=== PATIENT | male | born 1945 | race Caucasian/White ===

== ENCOUNTER 2016-09-29 05:56 | Observation (INO) ==
[2016-09-27 10:48] LABS: MANUAL DIFF NEEDED? NO; URINE MICRO REVIEW NEEDED? NO; URINE SOURCE VOIDED
--- NOTE | 2016-09-27 10:48 | Diag Imaging Result Doc PS360 ---
EXAM: CHEST-2 VIEWS HISTORY: PAT TECHNIQUE: COMPARISON: None. FINDINGS: Heart is mildly prominent. The vessels are not distended. The lungs are well expanded. No pleural effusions. No pneumonia. There is a small granuloma in the mid right lung. IMPRESSION: Mildly prominent heart, but otherwise negative exam. Electronically signed by Dhruv Leiva 09/27/2016 10:45 AM
[2016-09-27 11:53] LABS: BASO% 0.4 % (0.0-0.8); EOS# 0.16 X1000 (0.0-0.7); EOS% 1.7 % (0.0-10.0); HEMATOCRIT 41.7 % (42.0-52.0); HEMOGLOBIN 14.5 g/dL (14.0-18.0); IMM GRAN# 0.06 X1000 (0.0-0.04); IMM GRAN% 0.6 % (0.0-0.5); LYMPH# 2.25 X1000 (1.2-3.4); LYMPH% 23.9 % (20.5-51.1); MCHC 34.8 g/dL (33-37); MCV 97.9 FL (81-99); MONO# 1.08 X1000 (0.11-0.59); MONO% 11.5 % (1.7-9.3); MPV 11.7 FL (7.4-10.4); NEUT% 61.9 % (42.2-75.2); PLT 227 X1000 (130-400); RBC 4.26 XMIL (4.7-6.1)
[2016-09-27 11:56] LABS: BILIRUBIN URINE NEGATIVE (NEGATIVE); BLOOD URINE NEGATIVE (NEGATIVE); COLOR YELLOW; GLUCOSE URINE NEGATIVE (NEGATIVE); LEUKOCYTES URINE NEGATIVE (NEGATIVE); NITRITE URINE NEGATIVE (NEGATIVE); PH URINE 6.5; PROTEIN URINE NEGATIVE (NEGATIVE); SP GRAVITY URINE 1.005; TURBIDITY URINE CLEAR (CLEAR); UROBILINOGEN URINE NORMAL (NORMAL)
[2016-09-27 11:59] LABS: UR EPITHELIAL CELLS <10 /HPF (<10); URINE BACTERIA NEGATIVE /HPF; URINE RBC <10 /HPF (<10); URINE WBC <10 /HPF (<10)
[2016-09-27 12:16] LABS: AGAP 13; ALBUMIN 4.1 g/dL (3.5-5.0); ALKALINE PHOSPHATASE 114 U/L (32-122); BUN 12 mg/dL (8-22); CALCIUM 9.5 mg/dL (8.8-10.2); CHLORIDE 97 mmol/L (98-107); COSMO 283; GOT 31 U/L (10-34); GPT 23 U/L (10-44); POTASSIUM 3.5 mmol/L (3.5-5.1); SODIUM 142 mmol/L (136-145); TCO2 32 mmol/L (25-35); TOTAL BILIRUBIN 1.06 mg/dL (0.20-1.00); TOTAL PROTEIN 7.5 g/dL (6.3-8.3)
--- NOTE | 2016-09-28 05:18 | EKG Report ---
Test Performed on : 09/27/2016 09:57:41 AM Test Reason : PAT Blood Pressure : / mmHG Vent. Rate : 057 BPM Atrial Rate : 057 BPM P-R Int : 136 ms QRS Dur : 082 ms QT Int : 430 ms P-R-T Axes : 062 084 068 degrees QTc Int : 418 ms Sinus bradycardia. Nonspecific ST abnormality Abnormal ECG No previous ECGs available Confirmed by Jani Ruiz DO ([id number]) on 09/30/2016 5:11:53 PM
[2016-09-29] MEDS ORDERED: PEPCID ONE (06:12)
[2016-09-29] MEDS ORDERED: REGLAN ONE (06:12)
[2016-09-29] MEDS ORDERED: KEFZOL 1 GM/D5W 1 GM/50 ML IVPB ONE (06:13)
[2016-09-29] MEDS ORDERED: LR 1,000 ML ONE ×2 (06:13→07:45)
[2016-09-29] MEDS ORDERED: COREG ONE (06:43)
[2016-09-29] MEDS ORDERED: ZIAC 10/6.25 MG PO ONE (06:44)
[2016-09-29] MEDS ORDERED: COREG PO ONE (06:44)
[2016-09-29] MEDS ORDERED: AMIDATE ONE (06:54)
[2016-09-29] MEDS ORDERED: ROBINUL ONE ×2 (06:54→08:25)
[2016-09-29] MEDS ORDERED: XYLOCAINE-MPF 2% ONE (06:54)
[2016-09-29] MEDS ORDERED: SODIUM CHLORIDE 0.9% ONE (07:45)
[2016-09-29] MEDS ORDERED: OFIRMEV 1000 MG/ISOTONIC SOLN 1,000 MG/100 ML BOTTLE ONE (07:49)
[2016-09-29] MEDS ORDERED: TORADOL ONE (07:50)
[2016-09-29] MEDS ORDERED: DECADRON ONE (07:50)
[2016-09-29] MEDS ORDERED: MARCAINE 0.25% PF ONE (07:59)
[2016-09-29] MEDS ORDERED: ZEMURON ONE (08:03)
[2016-09-29] MEDS ORDERED: NEOSTIGMINE ONE (08:25)
[2016-09-29] MEDS ORDERED: QUELICIN (DOSE) ONE (08:33)
--- NOTE | 2016-09-29 08:39 | Diag Imaging Result Doc PS360 ---
EXAM: OPERATIVE CHOLANGIOGRAM HISTORY: GALLBLADDER DZ WITH SLUDGE TECHNIQUE: COMPARISON: None. FINDINGS: There is contrast filling the common bile duct. It has emptied into the duodenum. There is a crescent-shaped filling defect in the distal common bile duct concerning for a prominent stone. IMPRESSION: I believe there is a stone in the distal common bile duct Electronically signed by Dhruv Leiva 09/29/2016 8:36 AM
--- NOTE | 2016-09-29 09:18 | OPERATIVE NOTE ---
PROCEDURE DATE: 09/29/2016 PREOPERATIVE DIAGNOSIS: Cholecystitis, cholelithiasis, possible stone in common bile duct. POSTOPERATIVE DIAGNOSIS: Cholecystitis, cholelithiasis, possible stone in common bile duct. PROCEDURE: Laparoscopic cholecystectomy with cholangiogram. DESCRIPTION OF PROCEDURE IN DETAIL: The patient was brought to the operating room after satisfactory induction of IV and endotracheal anesthesia, athrombic VIOLA's were placed. His abdomen was broadly prepped and draped in the appropriate manner for laparoscopy. Initially, the infraumbilical area was infiltrated with 0.25% Marcaine with epinephrine. Dissection was taken sharply down through skin and subcutaneous tissue. Fascia was tacked with 0 Surgilon and incised. Under direct visualization, a Junior trocar was placed. The abdomen was insufflated to 3.5 L of carbon dioxide. Again, after infiltration with Marcaine and epinephrine, one 10 and two 5 mm trocars were placed across the right epigastrium. The liver was inspected; it appeared to have some early evidence of cirrhosis. The gallbladder was grasped and retracted superiorly. The hilar structures were dissected. The cystic duct was slightly dilated. A cystic duct cholangiogram revealed a possible 1 cm plus common bile duct stone in the distal duct with no obstruction. The catheter was subsequently removed. The duct was doubly clipped and divided, as was the cystic artery. The gallbladder was dissected from the liver bed with the use of the monopolar scissors. It was subsequently placed in an EndoCatch bag and removed. On opening, there was a 5-6 mm stone in the gallbladder. The rest was just sludge. The decision was made to place a drain as the patient may require ERCP with pushback pressure on the duct, so a Kian- Olsen drain was threaded and brought out through a right lateral trocar incision. It was anchored with 0 Surgilon. It was placed in the subhepatic space. The abdomen was subsequently deflated. The trocars were removed. The subumbilical incision underwent fascial closures of 0 Surgilon. All skin incisions were closed with stainless steel clips. Sterile dressings were applied. The patient was awakened and extubated in the operating room and transferred to recovery. ESTIMATED BLOOD LOSS: About 10 mL. cc: Marko Dean MD
[2016-09-29] MEDS ORDERED: D5 1/2 NS 1,000 ML ONE (09:25)
[2016-09-29] MEDS: PERCOCET-10 PO PRN ×2 (11:03→16:02)
[2016-09-29] MEDS: NICODERM PATCH TD SCH (11:03)
[2016-09-29 11:06] LABS: INR 0.97; PROTIME 10.2 Seconds (9.2-11.7)
[2016-09-29] MEDS ORDERED: PERCOCET-10 PO SCH (13:00)
[2016-09-29] MEDS: KEFZOL 1 GM/D5W 1 GM/50 ML IVPB IV SCH (15:58)
[2016-09-29] MEDS ORDERED: DULCOLAX PR PRN (17:09)
[2016-09-29] MEDS ORDERED: PROTONIX IV SCH (17:15)
[2016-09-29] MEDS ORDERED: SODIUM CHLORIDE 0.9% INJ SCH (17:15)
--- NOTE | 2016-09-29 18:21 | CONSULTATION ---
DATE OF CONSULTATION: 09/29/2016 ADMITTING PHYSICIAN: Dr. Marko Dean. PRIMARY PHYSICIAN: Dr. Mikie Maradiaga. REASON FOR CONSULTATION: Choledocholithiasis. HISTORY: Mr. Galicia is a 70-year-old male who underwent cholecystectomy this morning by Dr. Dean. Intraoperative cholangiogram showed evidence of possible retained common bile duct stone. The patient had uneventful surgery and on resection the gallbladder showed evidence of a 5-6 mm stones and sludge. The patient also had a FARRAH drain placed in the right upper quadrant. Gastroenterology was consulted for ERCP for management of choledocholithiasis. PAST MEDICAL HISTORY: Arthritis, congestive heart failure, chronic pain, COPD, hypertension, reflux, chronic smoker. ALLERGIES: No known drug allergies. MEDICATIONS AT HOME: 1. Lasix 40 mg daily. 2. Coreg 12.5 mg p.o. b.i.d. 3. Methadone 10 mg once daily. 4. Bisoprolol/hydrochlorothiazide 1 tablet daily. 5. Potassium chloride 10 mEq once daily. 6. Percocet 10/325, 1 tab p.o. t.i.d. 7. Allopurinol 30 mg once daily. 8. Aspirin 81 mg every day. PAST SURGICAL HISTORY: Recent cholecystectomy done today with intraoperative cholangiogram, back surgery and recent cholecystectomy. MEDICATIONS IN THE HOSPITAL: Include Allopurinol, bisoprolol/ hydrochlorothiazide, Coreg, cefazolin 1 g IV every 8 hours, Lasix 40 mg at bedtime, methadone 10 mg p.o. at bedtime, NicoDerm patch 20 mg once daily, oxycodone/acetaminophen 10 mg q. 4 hours as needed, potassium chloride 10 mEq once daily. Patient is on clear liquid diet. SOCIAL HISTORY: Patient has been a chronic smoker. No history of illicit drug abuse. He lives at home. FAMILY HISTORY: Noncontributory. REVIEW OF SYSTEMS: Denies any current fevers, rigors, or chills, chest pain, shortness of breath, dyspnea at rest. Denies any genitourinary. He feels sore in the abdomen from surgery. Denies any nausea or vomiting. He has not passed any flatus yet. Has a chronic history of chronic arthritis and pain. Denies any neurologic complaints. PHYSICAL EXAMINATION: Vitals: Temperature of 98.2 degrees, pulse rate 63, AST is 16, pressure 137/82, saturating 98% on room air. Body weight of 204 pounds 12.8 ounces, BMI 31 kg/m2. General Appearance: Moderately built, lying in bed, in no acute distress. HEENT: No pallor. No icterus. Pupils equal and reactive to light. Neck is supple. Chest: Decreased. Cardiovascular: Reveals regular rhythm. Abdomen: Right upper quadrant drain noted. Surgical dressing noted over the laparoscopy areas. Bowel sounds are hypoactive. Extremities: No cyanosis, clubbing, edema. Neuro: Alert, awake, oriented x 3. LABS: Hemoglobin and hematocrit is 14.5 and 41.7, white count 9.4, platelet count of 227,000, MCV of 97. 9, INR 0.97, PT of 10.2, PTT 27.1. Sodium 142, potassium 3.5, chloride 97, bicarb 32, anion gap of 13, BUN of 12, creatinine 1, glucose of 107, calcium 1.06, AST 31, ALT 23, alkaline phosphatase is 104, total protein 7.5, albumin of 4.1. Intraoperative cholangiogram showed evidence of possible choledocholithiasis. Chest x-ray showed mildly prominent heart, otherwise negative exam. IMPRESSION: 1. Choledocholithiasis. 2. Status post cholecystectomy. 3. Reflux disease. 4. Chronic pain, on methadone and Percocet. RECOMMENDATIONS: 1. Patient will be made NPO past midnight. The patient will be scheduled ERCP tomorrow by Dr. Santoro. The risks, benefits, indications, and alternatives of surgery discussed with the patient and all questions answered. 2. Patient is being started on GI prophylaxis with PPIs and started on bowel regimen with Dulcolax. 3. Further recommendations pending the above. cc: MD Marko Fleming MD MTDD
[2016-09-29] MEDS ORDERED: METHADONE PO SCH (21:00)
[2016-09-29] MEDS ORDERED: LASIX PO SCH (21:00)
[2016-09-29] MEDS: COREG PO SCH (21:56)
[2016-09-29] MEDS: PERIDEX MT SCH (21:56)
[2016-09-30] MEDS: KEFZOL 1 GM/D5W 1 GM/50 ML IVPB IV SCH ×2 (00:42→07:57)
[2016-09-30] MEDS ORDERED: D5 1/2 NS 1,000 ML IV SCH (06:00)
[2016-09-30] MEDS ORDERED: KLOR-CON PO SCH (09:00)
[2016-09-30] MEDS ORDERED: ZIAC 10/6.25 MG PO SCH (09:00)
[2016-09-30] MEDS ORDERED: ZYLOPRIM PO SCH (09:00)
[2016-09-30] MEDS ORDERED: DIPRIVAN 1% ONE ×2 (09:13→09:21)
[2016-09-30] MEDS ORDERED: XYLOCAINE-MPF 2% ONE (09:13)
[2016-09-30] MEDS ORDERED: FENTANYL ONE (09:13)
[2016-09-30 09:14] LABS: HEMATOCRIT 35.6 % (42.0-52.0); HEMOGLOBIN 12.5 g/dL (14.0-18.0); IMM GRAN# 0.04 X1000 (0.0-0.04); IMM GRAN% 0.2 % (0.0-0.5); LYMPH# 1.02 X1000 (1.2-3.4); LYMPH% 6.2 % (20.5-51.1); MANUAL DIFF NEEDED? YES; MCH 34.4 PG (27-31); MCHC 35.1 g/dL (33-37); MCV 98.1 FL (81-99); MONO# 0.98 X1000 (0.11-0.59); MONO% 5.9 % (1.7-9.3); NEUT% 87.7 % (42.2-75.2); PLT 192 X1000 (130-400); RBC 3.63 XMIL (4.7-6.1)
[2016-09-30 09:21] LABS: AGAP 13; ALBUMIN 3.4 g/dL (3.5-5.0); ALKALINE PHOSPHATASE 157 U/L (32-122); BUN 13 mg/dL (8-22); CALCIUM 8.9 mg/dL (8.8-10.2); CHLORIDE 98 mmol/L (98-107); COSMO 285; GOT 51 U/L (10-34); GPT 46 U/L (10-44); POTASSIUM 2.9 mmol/L (3.5-5.1); SODIUM 142 mmol/L (136-145); TCO2 31 mmol/L (25-35); TOTAL BILIRUBIN 1.37 mg/dL (0.20-1.00); TOTAL PROTEIN 6.5 g/dL (6.3-8.3)
[2016-09-30 09:34] LABS: LYMPHS 7 % (21-51); MONO 1 % (1-9)
--- NOTE | 2016-09-30 10:22 | Diag Imaging Result Doc PS360 ---
EXAM: ERCP-BILIARY AND PANCREATIC HISTORY: CBD stone TECHNIQUE: ERCP, three images COMMENT: There is an apparent ovoid filling defect in the distal common bile duct. This may have been basketed by Dr. Kothari. A stent was placed on the last image. IMPRESSION: Apparent removal of distal common bile duct stone and placement of stent. Electronically signed by Lex Barrett 09/30/2016 10:19 AM
[2016-09-30] MEDS: COREG PO SCH (10:53)
[2016-09-30] MEDS: NICODERM PATCH TD SCH (10:53)
[2016-09-30] MEDS: PERIDEX MT SCH (10:54)
[2016-09-30 16:00] VITALS: BP 119/55
--- NOTE | 2016-11-03 21:47 | OPERATIVE NOTE ---
PROCEDURE DATE: 11/02/2016 PROCEDURE: 1. Endoscopic retrograde cholangiogram. 2. Endoscopic sphincterotomy. 3. Endoscopic stone removal with basket. 4. Stent placement. PREOPERATIVE DIAGNOSIS: Choledocholithiasis. POSTOPERATIVE DIAGNOSIS: Choledocholithiasis. DESCRIPTION OF OPERATION: After informed consent and adequate intravenous sedation by Anesthesia, the scope introduced through the esophagus, stomach and duodenum. The cholangiogram was obtained and patient has one common bile duct stone. At this point, a generous sphincterotomy was done. The stone was removed with basket and the common bile duct was lavaged. There were no retained stones. At this point, a 10-[id number] 5-cm stent was deployed. The scope was withdrawn. The patient tolerated the procedure well without any immediate complications. cc: Shashi Santoro MD
== END 2016-09-30 16:26 | disposition home or self-care (01) ==
LOC: 4N 05:56 → OR 05:56
PROVIDERS: ADMIT Surgery; ATTEND Surgery